=== PATIENT | female | born 1995 | race American Indian/Alaskan Native ===

== ENCOUNTER 2017-03-11 22:02 | Emergency (ER) | payer SELFPAY | END 2017-03-11 22:05 | disposition left against medical advice (07) | LOC: ED 22:02 | DX: J45.909 Unspecified asthma, uncomplicated (principal); Z53.21 Procedure and treatment not carried out due to patient leaving prior to being seen by health care provider ==

== ENCOUNTER 2017-04-11 06:21 | Emergency (ER) | payer SELFPAY ==
[2017-04-11 07:30] LABS: Bacteria,Urine 1+ /HPF (Negative); Bilirubin,Urine NEG (Negative); Blood,Urine NEG (Negative); Ketones,Urine NEG (Negative); Leukocyte Esterase,Urine NEG (Negative); Mucus,Urine 1+ /HPF; Nitrite,Urine NEG (Negative); Protein,Urine <15 mg/dL mg/dL (Negative)
[2017-04-11 07:47] LABS: Basophils % (Auto) 0.6 % (0.0-1.8); Eosinophils % (Auto) 1.9 % (0.0-4.3); Hematocrit 40.5 % (30.3-42.9); Hemoglobin 13.8 gm/dl (10.1-14.3); Mean Corpuscular HGB Conc 34 % (30-34); Mean Corpuscular Hemoglobin 33 pg (28-32); Mean Corpuscular Volume 97 fl (79-97); Platelet Count 206 K/mm3 (140-440); Red Blood Count 4.19 M/mm3 (3.65-5.03); Red Cell Distribution Width 13.2 % (13.2-15.2); White Blood Count 6.2 K/mm3 (4.5-11.0)
[2017-04-11 08:05] LABS: Alanine Aminotransferase 10 units/L (7-56); Albumin 3.8 g/dL (3.9-5); Albumin/Globulin Ratio 1.4 %; Alkaline Phosphatase 53 units/L (35-129); Anion Gap 18 mmol/L; BUN/Creatinine Ratio 11.66; Blood Urea Nitrogen 7 mg/dL (7-17); Calcium 8.8 mg/dL (8.4-10.2); Carbon Dioxide 24 mmol/L (22-30); Chloride 103.8 mmol/L (98-107); Glucose 84 mg/dL (65-100); Lipase 17 units/L (13-60); Potassium 4.3 mmol/L (3.6-5.0); Sodium 141 mmol/L (137-145); Total Protein 6.5 g/dL (6.3-8.2)
[2017-04-11] MEDS ORDERED: LIDOCAINE VISCOUS 2% PO ONE (09:49)
[2017-04-11] MEDS ORDERED: ALUM-MAG HYDROX-SIMETH 200-200-20MG/5ML PO ONE (09:49)
[2017-04-11] MEDS ORDERED: ZOFRAN ODT PO ONE (09:49)
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
--- NOTE | 2017-04-11 10:33 | XRay Report ---
ABDOMEN, 2 views: History: Abdominal pain, constipation. There is no evidence of free air beneath the diaphragms. The gas pattern within the abdomen is unremarkable. No constipation. There is no evidence of bowel dilatation, significant air-fluid levels, or pathologic calcifications. Organ shadows are unremarkable. IMPRESSION: Unremarkable abdomen.
[2017-04-11 11:26] VITALS: BP 120/73
== END 2017-04-11 11:26 | disposition home or self-care (01) ==
LOC: ED 06:21
DX: K59.03 Drug induced constipation (principal); T40.2X5A Adverse effect of other opioids, initial encounter; J45.909 Unspecified asthma, uncomplicated; F17.210 Nicotine dependence, cigarettes, uncomplicated; F12.10 Cannabis abuse, uncomplicated; Z88.6 Allergy status to analgesic agent; Y92.89 Other specified places as the place of occurrence of the external cause
CPT/HCPCS: 36415; 74020; 80053; 81001; 83690; 84703; 85025; 99284; Q0162

== ENCOUNTER 2017-10-10 16:35 | Emergency (ER) | payer SELFPAY ==
[2017-10-10 16:42] VITALS: BP 121/69
[2017-10-10] MEDS ORDERED: ZOFRAN ODT ONE (16:45)
[2017-10-10] MEDS ORDERED: ZOFRAN ODT PO ONE (16:46)
[2017-10-10] MEDS ORDERED: ALUM-MAG HYDROX-SIMETH 200-200-20MG/5ML PO ONE (19:29)
[2017-10-10] MEDS ORDERED: LIDOCAINE VISCOUS 2% PO ONE (19:29)
--- NOTE | 2017-10-10 19:32 | Emergency Department Report ---
Blank Doc - Documentation Documentation: Patient is a 22-year-old female who is presenting with several episodes of nausea vomiting. Patient states the last episode there was small blood streaks. Patient has epigastric pain. Patient took a Zofran on arrival is feeling slightly better however she still is having crampy abdominal pain. Patient will have a urinalysis from [place] [facility] tests blood work and CT done.
[2017-10-10 19:57] LABS: BUN/Creatinine Ratio 10; Blood Urea Nitrogen 6 mg/dL (7-17); Calcium 8.9 mg/dL (8.4-10.2); Hemolysis Index 11
[2017-10-10 20:10] LABS: Basophils # (Auto) 0.1 K/mm3 (0.0-0.1); Basophils % (Auto) 0.7 % (0.0-1.8); Eosinophils % (Auto) 0.1 % (0.0-4.3); Hematocrit 42.2 % (30.3-42.9); Hemoglobin 14.1 gm/dl (10.1-14.3); Lymphocytes # (Auto) 1.4 K/mm3 (1.2-5.4); Mean Corpuscular HGB Conc 33 % (30-34); Mean Corpuscular Hemoglobin 33 pg (28-32); Mean Corpuscular Volume 98 fl (79-97); Monocytes # (Auto) 0.5 K/mm3 (0.0-0.8); Monocytes % (Auto) 4.8 % (0.0-7.3); Platelet Count 201 K/mm3 (140-440); Red Blood Count 4.32 M/mm3 (3.65-5.03); Red Cell Distribution Width 12.6 % (13.2-15.2)
[2017-10-10 20:34] LABS: Alanine Aminotransferase 9 units/L (7-56); Albumin 4.1 g/dL (3.9-5)
[2017-10-10 20:53] LABS: Bilirubin,Urine NEG (Negative); Blood,Urine MOD (Negative); Color,Urine Yellow (Yellow); Mucus,Urine 3+ /HPF; Protein,Urine <15 mg/dL mg/dL (Negative); WBC,Urine < 1.0 /HPF (0.0-6.0)
[2017-10-10 20:54] LABS: HCG Qualitative,Urine Negative (Negative)
== END 2017-10-10 22:45 | disposition left against medical advice (07) ==
LOC: ED 16:35
DX: R11.2 Nausea with vomiting, unspecified (principal)
CPT/HCPCS: 36415; 80053; 81001; 81025; 85025; 99283; Q0162